=== PATIENT | female | born 1950 | race Caucasian/White ===

== ENCOUNTER 2018-07-18 06:01 | Inpatient (IN) ==
[2018-07-18] MEDS ORDERED: Gabapentin 300 MG Capsule PO ONE (06:52)
[2018-07-18] MEDS ORDERED: Celecoxib 200 MG Capsule PO ONE (06:52)
[2018-07-18] MEDS ORDERED: Dexamethasone Inj 20 MG/5 ML Vial IV.PUSH ONE (06:52)
[2018-07-18] MEDS ORDERED: Sodium Chlor 0.9% Inj 40 ML, Bupivacaine Liposo PF 1.3% Inj 20 ML, Bupivacaine/Epi PF 0... P-ARTICULR ONE ×3 (06:52)
[2018-07-18] MEDS ORDERED: TRANEXAMIC ACID IV.SIG SCH (07:00)
[2018-07-18] MEDS ORDERED: Chlorhexidine 4% Topical 120 APPLIC/120 ML Bottle TOPICAL SCH (07:00)
[2018-07-18] MEDS ORDERED: Chlorhexidine Gluconate 2% 1 Pack (2 Cloths) TOPICAL ONE (07:00)
[2018-07-18] MEDS ORDERED: Metoprolol Tartrate 25 MG Tablet PO ONE (07:00)
[2018-07-18] MEDS ORDERED: SODIUM CHLOR 0.9% IV.SIG SCH (07:00)
[2018-07-18] MEDS ORDERED: Famotidine PF Inj 20 MG/2 ML Vial IV.PUSH ONE (07:00)
[2018-07-18] MEDS ORDERED: Sodium Chlor 0.9% Inj 500 ML IV.CONT ONE (07:00)
[2018-07-18] MEDS ORDERED: Dexamethasone PF Inj 10 MG/ML Vial ONE (07:08)
[2018-07-18] MEDS ORDERED: Neostigmine Inj 5 MG/5 ML Syringe IV.PUSH ONE (07:18)
[2018-07-18] MEDS ORDERED: Phenylephrine/NS 1000 MCG/10ML Syringe IV.PUSH ONE ×2 (07:18→13:43)
[2018-07-18] MEDS ORDERED: Lidocaine PF 1% Inj 5 ML Syringe OTHER ONE ×2 (07:18→13:43)
[2018-07-18] MEDS ORDERED: Glycopyrrolate Inj 1 MG/5 ML Syringe IV.PUSH ONE (07:18)
[2018-07-18] MEDS: Vancomycin Inj 1,000 MG in Sodium Chlor 0.9% Inj 250 ML IV.SIG SCH ×3 (07:40→21:48)
[2018-07-18] MEDS: ceFAZolin 2 GM Premix Inj 2 GM/50 ML PIGGYBACK IV.SIG SCH ×2 (07:43→16:10)
[2018-07-18 07:58] LABS: Calcium 8.9 mg/dL (8.5-10.1); Potassium 3.6 meq/L (3.5-5.1)
[2018-07-18] MEDS ORDERED: Morphine Inj 4 MG/ML Vial IV.PUSH PRN (09:06)
[2018-07-18] MEDS ORDERED: Post-op Orders (for Pharmacy) OTHER STA (09:06)
[2018-07-18] MEDS ORDERED: Promethazine 25 MG Supp RECTAL PRN (09:06)
[2018-07-18] MEDS ORDERED: Bisacodyl 10 MG Supp RECTAL PRN (09:06)
--- NOTE | 2018-07-18 09:12 | P.OP ---
- Preoperative Diagnosis (1) Unilateral primary osteoarthritis, right hip Date of procedure: 07/18/18 Procedure: Right total hip arthroplasty by anterior approach Anesthesia: GETA Surgeon: Chadwick Calderón MD Brass Molder: TRU Thapa PA-C The surgical procedure was assisted by my physician clinic office assistant. My P.A. presence was necessary throughout this case for the manipulation and positioning of the surgical extremity. My P.A. was assisting me throughout the duration of this procedure. The skill set of a physician clinic office assistant was medically necessary to complete this procedure. During the surgical case the registered nurse surgical services was working at the back table and the physician clinic office assistant was directly assisting me. Operation and Findings: PLAN OF ACTIVITY Weight bear as tolerated. IMPLANTS USED DePuy Actis size [1] collared stem with a size [48] [place] Gription cup, [48/ 32] Altrx poly liner, and a [32+1] Biolox ceramic head. DETAILS OF PROCEDURE: This patient has a long history of hip pain. Patient was found to have severe osteoarthritis. The patient had radiographic evidence of joint space narrowing with hxez-ex-geah arthritis and osteophytes around the acetabulum as well as the femoral head. There was also some cystic changes. The patient failed conservative treatment with pain medications, anti-inflammatories, physical therapy, assistive devices including a cane, as well as therapeutic injection of the hip. Patient's hip arthritis was limiting his ability to ambulate and perform activities of daily living. The patient wished to proceed with surgery and informed consent was obtained. Operative site was marked. I discussed both posterior approach and anterior approach with the patient and decision was made for anterior approach. Patient was brought to OR and placed on OR table. IV sedation and general anesthesia was administered by anesthesiologist. Patient positioned on a Suzanna table and was given IV antibiotics. Time-out procedure was performed. The hip and thigh were prepped with alcohol followed by Hibiclens. The thigh was draped in the usual sterile fashion. Clean Air Suite was used for this procedure. The procedure began with a 5-inch incision over the anterolateral thigh. Subcutaneous tissue was dissected with Bovie. The fascia over the tensa fasciae latae was incised. Care was taken to avoid injury to the lateral femoral cutaneous nerve. The tensor muscle was retracted laterally. Sartorius was retracted medially. Retractors were now placed. The reflected head of the rectus is now elevated. A capsulotomy was performed over the anterior head capsule. Sutures were placed to help retract the capsule. At this point the femoral head and neck were identified. With soft tissue protected, oscillating saw was used to make a cut through the femoral neck, the femoral head was now removed. At this point attention was turned to preparation of the acetabulum. The labrum was excised. The acetabulum was sequentially reamed up to size [48]. A [place] cup was now placed. Fluoroscopy was used to aid in identification of appropriate version. Cup was fully impacted and found to have excellent fit. Hole eliminator was now placed. The liner was now impacted into the cup. At this point the hip was externally rotated. A hook was placed around the proximal femur. The capsule was released off the lateral and medial femur. The hip was now extended and adducted. Retractors were placed around the proximal femur to allow for exposure. A box osteotome was used to remove the lateral cortex of the femoral neck. A broach was used to help lateralize the prosthesis. Canal finder was used to create a path down the canal. Next, the canal was sequentially broached up to size [1]. This was found to be an excellent fit. Calcar planer was placed. A standard head was placed, and the hip was reduced. The hip was found to have excellent stability with good range of motion. The leg lengths were measured under fluoroscopy and found to be equal compared to preoperatively. Trial broach was removed. The Actis stem was opened. Stem was fully impacted into the proximal femur in appropriate version. The femoral head was placed. The hip was again reduced. Fluoroscopy confirmed excellent alignment of prosthesis. The wound was thoroughly irrigated and capsule was closed with #1 Vicryl. The fascia over the tensor fasciae muscle was closed with #1 Vicryl, subcutaneous tissue was closed with 3-0 Vicryl and the skin was closed with dmitri and Dermabond skin closure. The capsule layers, muscle, and subcutaneous tissue were injected with a mixture of saline and bupivicaine. Dressings were applied. The patient was transferred to Recovery Room in stable condition.
[2018-07-18] MEDS ORDERED: *morphine SULFATE 10 MG/ML PERIprocedure ONLY ONE ×2 (09:50→10:05)
[2018-07-18] MEDS ORDERED: Tobramycin Sulfate 1,200 MG Vial (for ortho/sterile core) OTHER ONE (09:51)
[2018-07-18] MEDS ORDERED: fentaNYL Citrate Inj 100 MCG/2 ML Ampul ONE ×2 (09:52→09:53)
[2018-07-18] MEDS ORDERED: ceFAZolin Inj 2,000 MG in Sodium Chlor 0.9% Inj 80 ML IV.SIG SCH (10:00)
[2018-07-18] MEDS ORDERED: Vancomycin Inj 1 GM/200 ML PIGGYBACK IV.SIG SCH (10:00)
[2018-07-18] MEDS ORDERED: Tranexamic Acid Inj 1,000 MG in Sodium Chlor 0.9% Inj 100 ML IV.SIG SCH (11:00)
[2018-07-18] MEDS: Calcium/Vitamin D 250/125 MG Tablet PO SCH ×2 (12:16→18:21)
[2018-07-18] MEDS ORDERED: Succinylcholine Inj 100 MG/5 ML Syringe IV.PUSH ONE (13:43)
--- NOTE | 2018-07-18 15:37 | XR ---
EXAM DATE: 07/18/2018 3:29 PM EST AGE/SEX: 67 years / Female INDICATIONS: Right hip arthroplasty. CLINICAL DATA: This is the patient's initial encounter. Patient reports that signs and symptoms have been present for 1 day and indicates a pain score of Nonresponsive. MEDICAL/SURGICAL HISTORY: Non-responsive. Non-responsive. COMPARISON: No prior exams available for comparison. FINDINGS: 2 views in the operating room show a right hip arthroplasty. Alignment appears normal. No fracture or other acute complication demonstrated. CONCLUSION: Expected intraoperative radiographic appearance of right hip arthroplasty. Electronically signed by: Nate Saunders MD Board Certified Radiologist 07/18/2018 3:36 PM EST
[2018-07-18 19:00] VITALS: RESP 18
[2018-07-18] MEDS: Celecoxib 200 MG Capsule PO SCH (21:37)
[2018-07-18] MEDS: Senna/Docusate Sodium 8.6/50 MG Tablet PO SCH (21:54)
[2018-07-19] MEDS: ceFAZolin 2 GM Premix Inj 2 GM/50 ML PIGGYBACK IV.SIG SCH ×3 (00:53→10:00)
[2018-07-19 05:11] LABS: Hemoglobin 10.2 gm/dL (11.6-15.3)
--- NOTE | 2018-07-19 06:34 | P.PNOP ---
Subjective Interval history: POD 1 s/p right anterior ELAINE doing well. pain controlled. out of bed multiple times. states feels good and ready to go home Physical Exam Vital signs: Vital Signs 07/18/18 07:00 07/18/18 09:39 07/18/18 09:45 Temperature 98.7 F 97.7 F Pulse Rate 83 81 78 Respiratory Rate 18 11 L 10 L Blood Pressure 132/82 132/78 137/72 Pulse Oximetry 97 97 98 07/18/18 10:00 07/18/18 10:15 07/18/18 10:24 Temperature Pulse Rate 79 74 Respiratory Rate 20 9 L 13 Blood Pressure 115/64 94/64 L Pulse Oximetry 98 95 07/18/18 10:30 07/18/18 10:45 07/18/18 10:49 Temperature 97.7 F Pulse Rate 76 78 Respiratory Rate 14 10 L 11 L Blood Pressure 100/69 108/68 Pulse Oximetry 96 96 07/18/18 16:00 07/18/18 20:25 07/18/18 21:37 Temperature 98.0 F 97.9 F Pulse Rate 80 80 Respiratory Rate 18 19 18 Blood Pressure 109/62 105/62 Pulse Oximetry 94 L 92 L 07/19/18 00:15 Temperature 97.5 F L Pulse Rate 72 Respiratory Rate 18 Blood Pressure 104/63 Pulse Oximetry 94 L Intake & Output 07/18/18 07/18/18 07/19/18 06:59 18:59 06:59 Intake Total 462.42 / 462.42 250 / 250 Output Total 200 / 200 Balance 262.42 / 262.42 250 / 250 Weight 82.8 kg 82.8 kg Intake: IV 462.42 / 462.42 250 / 250 LR 1000 mL Inj 1,000 ML @ 80 0 / 0 mls/hr IV.CONT .[id number] VIANEY Rx# :[id number] Cyklokapron Inj 1,242 MG In NS 112.42 / 112.42 Inj 100 ML @ 200 mls/hr IV.SIG ONCE VIANEY Rx#:[id number] Vancomycin Inj 1,000 MG In NS 250 / 250 250 / 250 Inj 250 ML @ 250 mls/hr IV.SIG Q12H VIANEY Rx#:[id number] Ancef 2 GM Premix Inj 2 gm In 100 / 100 50 ml @ 100 mls/hr IV.SIG Q8H VIANEY Rx#:[id number] Output: Estimated Blood Loss 200 / 200 Other: Date of Last Bowel Movement 07/18/18 07/18/18 Weight On Admission 82.8 kg Narrative: RLE: dressing clean and dry. itncAt. NVI Results - Labs CBC & Chem 7: 07/19/18 04:01 07/18/18 07:00 Laboratory Results - last 24 hr 07/18/18 07/18/18 07/19/18 07:00 07:00 04:01 Hgb 10.2 L Hct 30.0 L Sodium 142 Potassium 3.6 Chloride 105 Carbon Dioxide 29.0 Anion Gap 8 BUN 21 H Creatinine 0.96 Estimated GFR 58 L Random Glucose 107 H Calcium 8.9 Blood Type O Positive Blood Type Recheck Required Antibody Screen Negative - Imaging Impressions Hip X-Ray 07/18/18 00:00 CONCLUSION: Expected intraoperative radiographic appearance of right hip arthroplasty. Assessment and Plan - Assessment and Plan 1) right Anterior ELAINE - POD 1 -WBAt -gait training -maintain surgical dressing x 6 days. begin daily dressing changes POD 7 with primapore -DVT prophylaxis with lovenox. DC with Aspirin 81mg BID -RX E-scribe to pharmacy via [facility] [facility] PT set up through office with [facility] home today -f/u with Marlyn or OTTONIEL in 2 weeks [id number] Prescription Drug Monitoring Database has been queried and verified prior to prescribing the controlled substance. Acute pain exception. This patient has normal, predicted, physiological, and time limited response to an adverse mechanical stimulus associated with surgery, trauma, or acute illness as described in my notes. There is a lack of alternative treatment options other than to include the prescribed narcotic treatment for this condition.
--- NOTE | 2018-07-19 06:44 | P.DS ---
Date of admission: 07/18/18 06:01 Primary care physician: No Primary Care Physician Attending physician on discharge: Chadwick Calderón Anticipated date of discharge: 07/19/18 Brief History from admission: Patient known to Dr. Calderón from an outpatient setting. Has developed right hip osteoarthritis. Failed conservative management which included activity modification, anti-inflammatory therapy, and intra-articular steroid injection, the decision was made to move forward with an elective right total hip arthroplasty DS: Diagnosis - Discharge Diagnosis (1) Status post total hip replacement, right Status: Acute (2) Unilateral primary osteoarthritis, right hip Status: Acute DS: Medications - Discharge Medications Prescriptions: hydrocodone-acetaminophen 1 tab PO Q4H PRN #40 tab PRN Reason: Acute Pain DS: Summary Hospital Course: Patient admitted for elective right total hip arthroplasty. She tolerated the procedure well. Postop day 0 she was out of bed on her own and ambulating around her room with minimal discomfort. By postop day 1, her pain was well controlled, she is hemodynamically stable, she is ambulate and safely with minimal pain, and fit for discharge home. Home health care therapy has been arranged from an outpatient setting. She will maintain her surgical dressing for 6 days and begin daily dressing changes with a Primapore dressing by postop day 7. She will begin adding Xeroform by postop day 10. she will continue fully weightbearing and resume a normal diet. She will have DVT prophylaxis with aspirin twice daily for 30 days. She will follow-up in the office with Dr. Calderón or his PA in 2 weeks - Time Spent with Patient Total time spent providing and/or coordinating discharge services: Less than 30 minutes - Quality: VTE Deep Vein Thrombosis/Pulmonary Embolism Present on Admission: No Exam Vital signs: Vital Signs 07/18/18 07:00 07/18/18 09:39 07/18/18 09:45 Temperature 98.7 F 97.7 F Pulse Rate 83 81 78 Respiratory Rate 18 11 L 10 L Blood Pressure 132/82 132/78 137/72 Pulse Oximetry 97 97 98 07/18/18 10:00 07/18/18 10:15 07/18/18 10:24 Temperature Pulse Rate 79 74 Respiratory Rate 20 9 L 13 Blood Pressure 115/64 94/64 L Pulse Oximetry 98 95 07/18/18 10:30 07/18/18 10:45 07/18/18 10:49 Temperature 97.7 F Pulse Rate 76 78 Respiratory Rate 14 10 L 11 L Blood Pressure 100/69 108/68 Pulse Oximetry 96 96 07/18/18 16:00 07/18/18 20:25 07/18/18 21:37 Temperature 98.0 F 97.9 F Pulse Rate 80 80 Respiratory Rate 18 19 18 Blood Pressure 109/62 105/62 Pulse Oximetry 94 L 92 L 07/19/18 00:15 07/19/18 04:25 Temperature 97.5 F L 97.8 F Pulse Rate 72 69 Respiratory Rate 18 18 Blood Pressure 104/63 110/59 L Pulse Oximetry 94 L 94 L Intake & Output 07/18/18 07/18/18 07/19/18 06:59 18:59 06:59 Intake Total 462.42 / 462.42 730 / 730 Output Total 200 / 200 Balance 262.42 / 262.42 730 / 730 Weight 82.8 kg 82.8 kg 82.7 kg Intake: IV 462.42 / 462.42 250 / 250 LR 1000 mL Inj 1,000 ML @ 80 0 / 0 mls/hr IV.CONT .[id number] VIANEY Rx# :[id number] Cyklokapron Inj 1,242 MG In NS 112.42 / 112.42 Inj 100 ML @ 200 mls/hr IV.SIG ONCE VIANEY Rx#:[id number] Vancomycin Inj 1,000 MG In NS 250 / 250 250 / 250 Inj 250 ML @ 250 mls/hr IV.SIG Q12H VIANEY Rx#:[id number] Ancef 2 GM Premix Inj 2 gm In 100 / 100 50 ml @ 100 mls/hr IV.SIG Q8H VIANEY Rx#:[id number] Oral 480 / 480 Output: Estimated Blood Loss 200 / 200 Other: # Voids 2 Date of Last Bowel Movement 07/18/18 07/18/18 # Bowel Movements 0 Weight On Admission 82.8 kg Narrative: RLE: dressing clean and dry. itncAt. NVI Results Procedures completed during hospitalization: Right anterior total hip arthroplasty Labs on day of discharge: Labs from last 24 hours 07/19/18 07/18/18 07/18/18 04:01 07:00 07:00 Hgb 10.2 L Hct 30.0 L Sodium 142 Potassium 3.6 Chloride 105 Carbon Dioxide 29.0 Anion Gap 8 BUN 21 H Creatinine 0.96 Estimated GFR 58 L Random Glucose 107 H Calcium 8.9 Blood Type O Positive Blood Type Recheck Required Antibody Screen Negative - Impressions ITS Impressions Hip X-Ray 07/18/18 00:00 CONCLUSION: Expected intraoperative radiographic appearance of right hip arthroplasty. Discharge Plan - Discharge Disposition Patient Disposition: Discharge Home - Discharge Condition Condition: Good - Discharge Order Discharge Orders: Discharge Order (Routine); Ordered 07/19/18 Ordered By: Andrés Christensen - Physicians Team Primary Care Provider: Primary Care Rochelle Peterson Attending Provider: Chadwick Calderón - Rxs /Orders / Referrals /Forms Prescriptions: New hydrocodone-acetaminophen 7.5-325 mg Tablet 1 tab PO Q4H PRN (Reason: Acute Pain) Qty: 40 RF: 0 Continue celecoxib [Celebrex] 200 mg Capsule 200 mg PO TID dexlansoprazole [Dexilant] 60 mg Capsule,Biphase Delayed Releas 60 mg PO DAILY escitalopram oxalate 20 mg Tablet 20 mg PO DAILY turmeric 400 mg Capsule 1 cap PO DAILY Referrals: Primary Care Rochelle Peterson [Primary Care Provider] - See Instructions Chadwick Calderón MD [Physician] - See Instructions (2 weeks)
[2018-07-19] MEDS: Celecoxib 200 MG Capsule PO SCH (08:28)
[2018-07-19] MEDS: Senna/Docusate Sodium 8.6/50 MG Tablet PO SCH (08:28)
[2018-07-19] MEDS: Vancomycin Inj 1,000 MG in Sodium Chlor 0.9% Inj 250 ML IV.SIG SCH ×2 (08:29→08:55)
[2018-07-19] MEDS: Calcium/Vitamin D 250/125 MG Tablet PO SCH ×2 (08:29→13:00)
[2018-07-19 13:04] VITALS: BP 113/69; PULSE 74; TEMP 98.6; O2SAT 98
== END 2018-07-19 13:58 | disposition home or self-care (01) | DRG 470 ==
LOC: HSDI 06:01 → N06 11:19
PROVIDERS: ADMIT Orthopaedic Surgery Orthopaedic Trauma; ATTEND Orthopaedic Surgery Orthopaedic Trauma
CPT/HCPCS: 73502; 76000; 80048; 85014; 85018; 86850; 86900; 86901; 94150; 97110; 97116; 97150; 97163; 97167; 97535; C1776; C9290; J0131; J0330; J0690; J1100; J1580; J2250; J2270; J2370; J2405; J2704; J2710; J3010; J3370; J7050; J7120